=== PATIENT | male | born 1935 | race Caucasian/White ===

== ENCOUNTER 2024-05-24 08:34 | Day surgery (SDC) | payer OTHER, SELFPAY ==
[2024-05-24 09:05] VITALS: BP 119/76
[2024-05-24 09:11] VITALS: BP 119/76
[2024-05-24 09:15] VITALS: BMI 24.1
[2024-05-24] MEDS: LOW STRENGTH ASPIRIN 81 MG PO (09:27)
--- NOTE | 2024-05-24 10:10 | CONSULT.STRU ---
Consultation
-
Date/Time Consultation Requested: 05/24/2024
Date/Time Consultation Performed: 05/24/2024
Requesting Provider: Paco Sandoval MD
Performing Provider: ORLANDO Gómez
Reason for Consultation: /TAVR
Patient History
Physicians
Family Physician: Chris Cain MD
Outpatient Marketing Communications Leader: Sohan Koo DO
Primary Marketing Communications Leader: Sohan Koo DO
History of Present Illness
Mr. Sanchez is a very pleasant 88 yom that presents with severe symptomatic aortic stenosis associated with GONZALES. The heart team first met Mr. Sanchez in Consult with Dr. Marcelino on 05/17/2024 and initiated the conversation regarding and the
evaluation process. Assisted him in scheduling his cardiac catheterization and repeat echocardiogram at [facility]. His echocardiogram from today (05/24/2024) is notable for EF 40-45%, AV P/M 82/47, GILMA 0.9, with trace AI. Discussed
pathophysiology and treatment options of aortic stenosis including SAVR and TAVR with patient and spouse. Explained the TAVR evaluation process comprising of staged CT scan d/t CKD IV, Dental clearance, and a heart team discussion. Mr. Sanchez
has seen Dr. Marcelino in consult on 05/17/2024. TAVR booklet, prescriptions, contact information, and appointments given to patient and his family. Allowed for and answered questions at bedside.
Past Medical History
Past Medical History: HTN, Psychiatric (bipolar depression), Valvular Disease (Aortic stenosis) and Other (CKD IV, Ascending aortic aneurysm (4.9cm), recent hospitalization for pneumonia)
Past Surgical History
Past Surgical History: Abdominal ('GI surgery')
Dental History
[facility]--Form faxed
Family History
Mother: N/A
Father: N/A
Family Medical History: Diabetes
Social History
Alcohol: None
Drug: None
Tobacco: Non-Smoker
Personal:
Living: With Spouse
Employment: Retired
Allergies
Allergy/AdvReac Type Severity Reaction Status Date / Time
No Known Allergies Allergy Unverified 05/24/24 09:18
Home Medications
�Medication �Instructions �Recorded �Confirmed �Type
aspirin 81 mg tablet 81 mg PO DAILY blood thinner 05/24/24 05/24/24 History
atorvastatin 10 mg tablet 10 mg PO DAILY cholesterol 05/24/24 05/24/24 History
azithromycin 250 mg capsule 250 mg PO DAILY pneumonia 05/24/24 05/24/24 History
bupropion HCl 150 mg 24 hr tablet, 150 mg PO DAILY depression 05/24/24 05/24/24 History
extended release
calcitriol 0.25 mcg capsule 0.25 mcg PO DAILY Supplement 05/24/24 05/24/24 History
cefuroxime axetil 250 mg tablet 250 mg PO DAILY @ 0600 pueminia 05/24/24 05/24/24 History
lithium carbonate 300 mg 150 mg PO DAILY depression 05/24/24 05/24/24 History
tablet,extended release
olanzapine 2.5 mg tablet 2.5 mg PO DAILY 05/24/24 05/24/24 History
pantoprazole 40 mg tablet,delayed 40 mg PO DAILY stomach 05/24/24 05/24/24 History
release
Review of Systems
-
History Source: Family (Spouse)
General: Reports Fatigue
Respiratory: Reports SOB and GONZALES
Cardiac: Reports No Symptoms
Abdomen/GI: Reports No Symptoms
: Reports No Symptoms
Neurological: Reports No Symptoms
Vascular: Reports No Symptoms
Physical Exam
Vital Signs
Temp 97.1 F 05/24/24 09:05
Temp route: Oral 05/24/24 09:05
Pulse 80 05/24/24 09:05
Resp Rate 20 05/24/24 09:05
Blood pressure 119/76 05/24/24 09:05
Blood pressure extremity used: Right upper arm 05/24/24 09:05
Position: Sitting 05/24/24 09:05
SaO2 99 05/24/24 09:05
Oxygen Mode of Delivery Room air 05/24/24 09:05
Actual Weight 61.6 kg 05/24/24 09:15
Body Mass Index (BMI) 24.1 05/24/24 09:15
Labs
05/17/2024:
HH: 11.5/35.2
PLt: 153K
BUN/Creatinine: 43/2.96
GFR 20
Diagnostic Studies
ECHOCARDIOGRAM 05/24/2024:
CONCLUSIONS
Mildly reduced left ventricular systolic function. Left ventricular ejection
fraction is 40-45% by volumetric assessment.
Inferior, inferolateral and apical hypokinesis.
Stage II diastolic dysfunction suggestive of abnormal relaxation and increased
filling pressures.
Severe aortic stenosis. Trace aortic regurgitation.
Dilated ascending aorta measuring 4.5 cm.
No prior study available for comparison.
Aortic Valve
Thickened aortic valve with restricted leaflet motion. Severe aortic stenosis.
Peak/mean gradients across the aortic valve are 82/47 mmHg respectively. Using
an LVOT diameter of 2.1 cm., the aortic valve by the Continuity equation is
calculated at 0.9 cm2. Trace aortic regurgitation.
CARDIAC CATHETERIZATION 05/24/2024:
CONCLUSIONS
1. Non-obstructive coronary artery disease in a likely left or co-dominant system. Unable to selectively engage RCA with multiple catheters and in setting of severe CKD with clear RCA for TAVR with planned CT Chest angiogram.
2. Large caliber bilateral iliofemoral system acceptable for TAVR with any sized device
RECOMMENDATIONS:
1. Expectant management after cardiac catheterization via right femoral approach
2. Labs end of week to monitor renal function
3. TAVR CT in 2 weeks to allow renal recovery and then urgent TAVR given critical stenosis
STS Risk ISO AVR:
Operative Mortality8.8%
Morbidity & Bgcngkouo58%
Stroke1.76%
Renal Tywepsw66.9%
Reoperation6.6%
Prolonged Iguiilyizco41.6%
Deep Sternal Wound Infection0.037%
Long Hospital Stay (>14 days)14.3%
Short Hospital Stay (<6 days)*16%
Exam
General: Well Developed and Well Nourished
HEENT: Normocephalic
Neck: Trachea Midline
Respiratory: Clear (anteriorly)
Cardiac: Murmur (III/ AVEL)
GI: Non Tender and Non Distended
Rectal: Deferred by Provider
Neuro: Awake, Alert and Oriented
Extremities: Lower Level Edema (trace)
Psych: Calm
Assessment / Plan
-
Aortic Stenosis
Continue with TAVR evaluation
Trend creatinine after contrast administration (Rx given)
Staged CT scan d/t CKD4 (chest CT 06/07)
CT surgical consult (TT 05/17)
Frailty testing and KCCQ12 completed at consult
Dental clearance-patient is edentulous
Will need to start aspirin
Heart team discussion
Data Reviewed
-
Echo: Report Reviewed by me and Discussed with Physician
CT Scan: Report Reviewed by me and Discussed with Physician
Labs: Labs Reviewed by me
Old Records: Reviewed (old records)
Total Time Spent with Patient (in minutes): 45
[2024-05-24 11:50] VITALS: BP 93/63
[2024-05-24 12:01] VITALS: BP 110/69
--- NOTE | 2024-05-24 16:07 | ITS.CL.PN ---
Die Cut Operator - Procedure Note
Procedure
Procedure Note:
CARDIAC CATHETERIZATION REPORT
Date of Procedure: 05/24/2024
Referring: Dr. Sohan Koo MD
INDICATION: severe aortic stenosis
PROCEDURE:
1. Coronary angiography
2. Abdominal aortogram with bilateral iliofemoral angiography
ACCESS:
6 Danish right common femoral artery (right radial wire would not pass elbow, likely radial loop; manual hemostasis for femoral given pending TAVR)
CATHETERS:
1. 5F JL5
2. 5F JR4
3. 5F AR2
4. 5F AL1
CORONARY ANGIOGRAPHY:
LM: normal, large
LAD: large vessel giving rise to a large D1 with mild proximal stenosis and several more small caliber diagonal branches before wrapping around the apex. Otherwise, mild luminal irregularities.
LCx: large, likely co-dominant vessel giving rise to a large branching OM1 and moderate caliber LPDA. There are mild luminal irregularities.
RCA: not selectively engaged with multiple catheters (JR4, AR2, AL1). Likely a small non- or co-dominant vessel so will plan to clear with CT Chest TAVR to minimize contrast in this patient with severe CKD.
ABDOMINAL AORTOGRAM with ILIOFEMORAL ANGIOGRAPHY: normal caliber iliofemoral system with minimal disease bilaterally and low femoral bifurcations bilaterally.
RADIATION:
Radiation (mGy): 252
DAP (cm2.Gy): 20
Fluoroscopy time (minutes): 13
CONCLUSIONS
1. Non-obstructive coronary artery disease in a likely left or co-dominant system. Unable to selectively engage RCA with multiple catheters and in setting of severe CKD with clear RCA for TAVR with planned CT Chest angiogram.
2. Large caliber bilateral iliofemoral system acceptable for TAVR with any sized device
RECOMMENDATIONS:
1. Expectant management after cardiac catheterization via right femoral approach
2. Labs end of week to monitor renal function
3. TAVR CT in 2 weeks to allow renal recovery and then urgent TAVR given critical stenosis
Copy to: Dr. Sohan Koo MD (primary brownfield program coordinator); Dr. Chris Cain MD (PCP)
Signed: Paco Sandoval MD, PhD
== END 2024-05-24 14:34 | disposition home or self-care (01) ==
LOC: CATH 08:34
PROVIDERS: ATTENDING PHYSICIAN Student in an Organized Health Care Education/Training Program; FAMILY PHYSICIAN Internal Medicine; OTHER PHYSICIAN Internal Medicine Cardiovascular Disease; OTHER PHYSICIAN Student in an Organized Health Care Education/Training Program
DX: I25.10 Atherosclerotic heart disease of native coronary artery without angina pectoris (principal); I35.0 Nonrheumatic aortic (valve) stenosis; N18.4 Chronic kidney disease, stage 4 (severe); F31.9 Bipolar disorder, unspecified; Z79.82 Long term (current) use of aspirin; Z79.899 Other long term (current) drug therapy; Z83.3 Family history of diabetes mellitus; I71.21 Aneurysm of the ascending aorta, without rupture; R06.09 Other forms of dyspnea
CPT/HCPCS: 93306; G0278; 93458; C1894; Q9967

== ENCOUNTER → 2024-06-07 08:22 | Outpatient (REF) | payer OTHER, SELFPAY | LOC: RAD 08:22 | PROVIDERS: ATTENDING PHYSICIAN Nurse Practitioner Acute Care | DX: I35.0 Nonrheumatic aortic (valve) stenosis (principal) | CPT/HCPCS: 75572; 96360; 96361; Q9967 ==

== ENCOUNTER 2024-07-05 07:18 | Inpatient (IN) | payer OTHER, SELFPAY ==
--- NOTE | 2024-06-26 09:28 | HPS.HSE ---
Family Physician
-
Family Physician: Chris Cain
Chief Complaint
-
GONZALES
Pre-TAVR evaluation
History of Present Illness
Mr. Sanchez is a very pleasant 88 yom that presents with severe symptomatic aortic stenosis associated with GONZALES. The heart team first met Mr. Sanchez in Consult with Dr. Marcelino on 05/17/2024 and initiated the conversation regarding and the
evaluation process. Assisted him in scheduling his cardiac catheterization and repeat echocardiogram at [facility]. His echocardiogram from today (05/24/2024) is notable for EF 40-45%, AV P/M 82/47, GILMA 0.9, with trace AI. Discussed
pathophysiology and treatment options of aortic stenosis including SAVR and TAVR with patient and spouse. Explained the TAVR evaluation process comprising of staged CT scan d/t CKD IV, Dental clearance, and a heart team discussion. Mr. Sanchez
has seen Dr. Marcelino in consult on 05/17/2024. TAVR booklet, prescriptions, contact information, and appointments given to patient and his family.
Mr. Sanchez has been reviewed with the heart team and recommended for a TF TAVR utilizing a 26mm S3. Reviewed medication list with patient and spouse, will start 81 mg aspirin daily. He will arrive to the [facility] atrium at 0530. Discussed the risks
of the procedure including stroke, kidney injury and dialysis, vascular injury and ppm. Informed patient and spouse, they will receive a phone call from the heart team on Tuesday (07/04) to confirm time and location of arrival. Allowed for and
answered questions.
Medical History
Past Medical History
Past Medical History: Reports HTN, Valvular Disease (aortic stenosis), Psychiatric (bipolar depression) and Other (ascending aortic aneurysm, CKD stage IV)
Past Surgical History: Reports Other (GI surgery)
Social History
Tobacco: Non-smoker
Alcohol: None
Drug: None
Personal:
Living: With Family
Family History
Family History: Diabetes and Other (alzheimer's dementia)
Allergies / Home Medications
Allergies reflects when Allergies were last updated in [employer].
Home Medications with original date entered in [employer]
Atorvastatin Calcium 10 MG Tablet Oral
Benzonatate 100 MG Capsule 1 capsule as needed Orally Three times a day
buPROPion HCl ER (XL) 150 MG Tablet Extended Release 24 Hour 1 tablet in the morning Orally Once a day
Calcitriol 0.25 MCG Capsule 1 capsule Orally Three times a Week
[address] Carbonate 300 MG Tablet 1 tablet at bedtime Orally Once a day
OLANZapine 2.5 MG Tablet Oral
Omeprazole 20 MG Capsule Delayed Release 1 capsule 1/2 to 1 hour before morning meal Orally Once a day
Aspirin 81 mg daily
Allergy/Medication List:
NKDA
Review of Systems
-
History Source: Patient and Family
Constitutional: Reports Fatigue
EENT: Reports No Symptoms
Respiratory: Reports Cough and Trouble Breathing
Cardiac: Reports No Symptoms
Abdomen/GI: Reports No Symptoms
: Reports No Symptoms
Musculoskeletal: Reports No Symptoms
Skin: Reports No Symptoms
Neurological: Reports No Symptoms
Endocrine: Reports No Symptoms
Hematologic/Lymphatic: Reports No Symptoms
Psych: Reports No Symptoms
Physical Exam
Physical Exam
General: Well Developed, Well Nourished, No Apparent Distress and Comfortable
HEENT: NormoCephalic
Respiratory: Clear
Cardiac: Regular Rhythm and Murmur (III/ AVEL)
Breast: Deferred by me
GI: Soft and Non Tender
Rectal: Deferred by Provider
Genito-urinary: Deferred by me
Musculoskeletal: Edema, Left Lower Extremity (trance) and Edema, Right Lower Extremity (Trace)
Skin: Warm and Dry
Neuro: Awake, Alert, Oriented and AO x 3
Psych: Calm
Data Reviewed
-
CT Scan: Report Reviewed by me and Discussed with Physician (Reviewed TAVR CT scan with the heart team)
Medical Tests (Nuc Med, Echo, EKG etc): Report Reviewed by me and Discussed with Physician (Reviewed echocardiogram and cardiac catheterization with the heart team)
Lab Data: Labs Reviewed by me
Old Records: Reviewed (Dr. Marcelino's office visit)
Impression/Plan
-
IMPRESSION/PLAN:
Severe aortic stenosis
Plan for (R) TF TAVR utilizing a 26mm S3
Continue 81 mg aspirin daily
POD #1/#30 Echocardiogram
Cardiac rehab consult
CKD Stage 4
Caution with contrast
T/c nephrology consult
IV hydration pre and post contrast
Labs
-
Labs:
WBC 8.5 10^3/uL (4.8-10.8) 06/26/24 12:19
RBC 4.12 10^6/uL (4.70-6.10) L 06/26/24 12:19
Hgb 13.2 g/dL (13.0-18.0) 06/26/24 12:19
Hct 40.6 % (39.0-52.0) 06/26/24 12:19
Plt Count 172 10^3/uL (130-400) 06/26/24 12:19
Sodium 140 mmol/L (135-145) 06/26/24 12:19
Potassium 5.0 mmol/L (3.5-5.1) 06/26/24 12:19
Chloride 106 mmol/L (98-107) 06/26/24 12:19
Carbon Dioxide 26 mmol/L (22-30) 06/26/24 12:19
BUN 38 mg/dl (9-20) H 06/26/24 12:19
Creatinine 2.9 mg/dL (0.7-1.3) H 06/26/24 12:19
eGFR 20.43 06/26/24 12:19
Glucose 81 mg/dl (70-99) 06/26/24 12:19
Calcium 10.5 mg/dl (8.4-10.2) H 06/26/24 12:19
Dxm-Y-Avhxdfwmgun Pept 43559 pg/ml 06/26/24 12:19
Albumin 4.3 g/dl (3.5-5.0) 06/26/24 12:19
[2024-06-26 12:02] VITALS: BMI 25.1
[2024-06-26 13:13] LABS: INR 1.02; PT 13.7 Sec (11.4-14.6)
[2024-06-26 13:14] LABS: APTT 34.6 Sec (23.4-35.0)
[2024-06-26 13:15] LABS: Urine Albumin Negative (Neg - Trace); Urine Bilirubin Negative (Negative); Urine Character Clear (Clear); Urine Color Yellow; Urine Glucose Negative (Negative); Urine Ketone Negative (Negative); Urine Leukocyte Negative (Negative); Urine Nitrite Negative (Negative); Urine Occult Blood Negative (Negative); Urine Specific Gravity 1.005 (<1.030); Urine Urobilinogen Negative (Neg - 1+); Urine pH 6.5 (5.0-9.0)
[2024-06-26 13:20] LABS: % Basophils 0.5 % (0-2); % Eosinophils 4.3 % (0-6); % Immature Granulocytes 0.2 % (0-0.5); % Lymphocytes 21.1 % (20.5-51.1); % Monocytes 6.8 % (1.7-9.3); % Neutrophils 67.1 % (42.2-75.2); Absolute Eosinophils 0.4 10^3/uL (0-0.7); Absolute Lymphocytes 1.8 10^3/uL (1.2-3.4); Absolute Monocytes 0.6 10^3/uL (0.1-0.6); Absolute Neutrophils 5.7 10^3/uL (1.4-6.5); Hematocrit 40.6 % (39.0-52.0); Hemoglobin 13.2 g/dL (13.0-18.0); Mean Corp Hgb Conc. 32.5 g/dL (33.0-37.0); Mean Corpuscular Volume 98.5 fL (80.0-94.0); Mean Platelet Volume 13.2 fL (7.4-10.4); Nucleated Red Blood Cells % 0 % (-); Platelet Count 172 10^3/uL (130-400); Red Blood Cell Count 4.12 10^6/uL (4.70-6.10); Red Cell Dist. Width 13.4 % (11.5-14.5); White Blood Cell Count 8.5 10^3/uL (4.8-10.8)
[2024-06-26 13:26] LABS: NT-proBNP 11100 pg/ml
[2024-06-26 13:48] LABS: ALT (SGPT) 14 U/L (0-50); AST (SGOT) 26 U/L (17-59); Albumin 4.3 g/dl (3.5-5.0); Alkaline Phosphatase 68 U/L (38-126); Blood Urea Nitrogen 38 mg/dl (9-20); Calcium 10.5 mg/dl (8.4-10.2); Carbon Dioxide 26 mmol/L (22-30); Chloride 106 mmol/L (98-107); Estimated Creatinine Clearance 15 ml/min; Glucose 81 mg/dl (70-99); Sodium 140 mmol/L (135-145); Total Protein 6.8 g/dl (6.3-8.2); eGFR 20.43
[2024-06-26 13:57] LABS: Direct Bilirubin 0.1 mg/dl (0.0-0.4); Total Bilirubin 0.8 mg/dl (0.2-1.3)
--- NOTE | 2024-06-26 14:48 | CM ---
Met with and Mrs. Sanchez and daughter in [facility]. He states prior to admission he resides with his spouse in a spilt level home without any steps to enter. He states he has three steps to get to the first level and seven steps to get to the
bedroom/full bathroom. He states prior to admission he was independent with ambulation and adls. He states he has a walker at home but does not use it. He states he has a prescription plan. His spouse states she will be home to assist in his
care if needed, The discharge plan is to return home with his spouse and a home visit by the Transitional Care Nurse when medically stable.
We reviewed pre-op and post-op routines. We reviewed the shower instructions. He has the soap, written instructions and the TAVR Educational Booklet. We also reviewed the restrictions including driving and lifting. We discussed a home visit by
the Transitional Care Nurse. He is agreeable to a home visit. The plan is for TAVR on 07/05/24.
[2024-07-05 07:35] VITALS: BMI 24.6
--- NOTE | 2024-07-05 08:36 | W.CVOR.SURPR ---
CVOR Surgeon Immed Pre Op
-
I have examined this patient prior to performance of the scheduled procedure.
The patient's condition is unchanged from the time of the dictated/written History and
Physical and the patient is able to undergo the scheduled procedure.
TF TAVR
Rescue Status: Ok for CPR/Shocks, no to CPB and Sternotomy
[2024-07-05 10:28] LABS: ACT-LR - POC 292 Seconds (116-155)
[2024-07-05 10:51] LABS: ACT-LR - POC 316 Seconds (116-155)
--- NOTE | 2024-07-05 11:48 | W.PN.CT.SURG ---
CT Surgery Operative Note
-
OPERATIVE REPORT
Preoperative Diagnosis: Severe aortic valve stenosis, symptomatic
Postoperative Diagnosis: Same
Procedure(s) Performed: Right trans femoral TAVR with a 26 mm, nominal, Cassidy TAVR valve, Emergency CPR, Pericardiocentesis
Date of Procedure: 07/05/2024
Comorbidities:
1. Severe aortic stenosis, symptomatic
2. Acute on chronic congestive heart failure secondary to volume overload
3. Mitral valve insufficiency
4. Hypertension
5. Hyperlipidemia
6. CAD nonobstructive
7. Bicuspid aortic valve, type 0
8. Ascending aortic aneurysm greater than 5 cm
Cardiac Surgeon: Carlton Marcelino MD, MS
Continuous Process Rotary Drum Tanner: Stephen Moreno MD
Anesthesia: Conscious Sedation and Local Analgesia
EBL: 1000cc
Products: none
Implant: 26 mm, nominal Cassidy KAYLAN TAVR valve, SN: [id number]
Indication(s) for Procedures: 88-year-old male with symptomatic severe aortic stenosis. He was initially referred for consideration of multivalve surgery with the send aortic replacement, however he was extremely frail and acute heart failure and a
poor surgical candidate. Multidisciplinary team discussion with the overall consensus that he was better served with transcatheter intervention. CT-TAVR protocol revealed acceptable anatomy for TAVR access and implantation.
Start time: 1001hrs
Deployment time: 1053hrs
End time: 1109hrs
Time of : 1107hrs
Findings: Preoperative LVEF was 30%. Upon anesthesia induction he required significant inotropic support as well as vasoactive medication support. This was in the form of dobutamine at 5 and Levophed at 10. He also required volume loading. Upon
crossing his aortic valve which was very horizontal in nature, the valve was deployed under rapid pacing as he began to drop his blood pressure. Immediately after deployment of the valve he went into PEA arrest and CPR was initiated. Brief
intraprocedural echocardiogram revealed a significant effusion. A small incision was made just below the xiphoid in order to identify the pericardium needle access was confirmed with wire placement inside the pericardium followed by pigtail
catheter. There was immediate return of approximately 500 cc of blood. We continued CPR with no negative blood pressure. At 1 point he did progress into shockable rhythm which was performed at 200 J followed by immediate CPR. After anesthesia
intubation, a transesophageal echocardiogram was performed which demonstrated significant fluid around his annulus and root which very much resembled a rupture. At this point given his frailty, desires to not have open heart surgeries, and multiple
comorbidities, he was felt by both operators that he was not salvageable. Time of was 11:07 AM.
Access:
1. Device -right common femoral artery, perclose x 2
2. Pigtail -left common femoral artery
3. Transvenous Pacer -left common femoral vein
Description of Procedure: The patient was taken to the hatchery laborer. Their identity and procedure to be performed were verified and they were positioned supine on the hatchery laborer table. Induction via conscious sedation. The patient was then prepped and
draped from chin to thigh in a sterile fashion. A preoperative time-out was performed with all members of the team present. Arterial and venous access was performed using fluoroscopy and ultrasound guidance with micropuncture and Seldinger
technique. Two perclose devices were used on the device side followed by access to the aorta with a stiff wire to facilitate E-sheath placement. Heparin was given. A stiff straight wire after exchanging to multiple different AL catheters and AR
catheters we were able to cross the aortic valve. The stiff wire was exchanged for an extra stiff coiled tip wire. The valve was prepped and mounted on to the device carrier. An ACT of >250 was achieved. We verified x 3 that the valve was mounted in
the correct orientation with the skirt of the valve directed toward the tip of the device carrier. We advanced the device into the descending thoracic aorta where the valve was them mounted onto the balloon under fluoroscopy. The device was flexed
and advanced over the arch into the root and positioned across the aortic valve. As he had extremely horizontal root and a heavily calcified bicuspid aortic valve, 1 cc was injected into the balloon while it was across the valve in order to
facilitate positioning of the device across the aortic valve. Contrast fluoroscopy was used to visualize the prosthesis across the valve and to guide positioning. A pigtail catheter in the RCC as used as a guide. We aimed to have the bottom of the
device marker at the annular hinge point. At this point with the valve in position, his blood pressure had significantly deteriorated. The device sheath was pulled back. We performed a quick pre-deployment time out. The pacer was turned on and had
capture. The valve was deployed with 5 seconds of rapid pacing to nominal volume. The balloon was deflated and the pacer was turned off. We did not have return of vitals and immediate CPR was instituted. The device carrier was unflexed and
positioned back in the descending thoracic aorta. A transthoracic echocardiogram was performed and found significant pericardial effusion. A small incision was made below the xiphoid and to direct needle access into the pericardium. A pigtail
catheter was placed inside the pericardium with return of 500+cc of bright red blood. We continued ACLS protocol for 15 mins, with his rhythm deteriorating from PEA to what looked like VT/Vfib. We shocked him with 200J, which we were able to regain
a regular rhythm with PEA. At this point, he was already intubated and a ARI was passed down demonstrating what looked like an annular rupture. At this point, it was determined by the proceduralist that this was futile and time of was called
at 11:07am.
I, Dr. Carlton Marcelino, was present, scrubbed for, and performed all critical elements of this procedure.
Carlton Marcelino MD
Cardiothoracic Surgeon
[facility]
This operative dictation was created using the [employer] dictation system. Please excuse any grammatical, typographical, or 'sound alike' errors
--- NOTE | 2024-07-05 11:49 | W.PN.DEATH ---
Pronouncement of
-
CPR was paused.
No spontaneous heart tones or respirations noted.
Patient not responsive to verbal stimuli.
Dr. Marcelino pronounced that patient at 1107
Time of : 11:07
Date of : 07/05/24
Cause of : cardiovascular collapse secondary to hemorrhage secondary to aneurysmal rupture s/p TAVR deployment
Family Notified: Yes
--- NOTE | 2024-07-05 11:51 | ITS.CL.TAVR ---
Printing Pressman - TAVR Report
TAVR PRocedure
Procedure Report:
TRANSCATHETER AORTIC VALVE REPLACEMENT REPORT
Date: 07/05/2024
Referring physician: Sohan Koo D.O.
Preop diagnosis: Bicuspid aortic valve with severe aortic valve stenosis and ascending thoracic aortic aneurysm.
Postop diagnosis: Bicuspid aortic valve with severe aortic valve stenosis, ascending thoracic aortic aneurysm, annular rupture.
Procedure: Transcatheter aortic valve replacement (TAVR) using a # 26 Cassidy JAIDA S3 Ultra, emergent pericardiocentesis, ACLS.
Operators: Stephen Moreno DO, Carlton Marcelino M.D.
Findings: Severely calcified and stenotic aortic valve.
Anesthesia: Conscious sedation was provided by the anesthesia staff.
Estimated blood loss: 800 cc.
Complications: Aortic valve annular rupture with immediate pericardial tamponade and cardiac standstill.
Condition: .
Procedure:
The patient was brought to the cardiac slab lifting supervisor after consent and was prepped and draped in standard sterile fashion. Conscious sedation was provided by the anesthesia staff. After a 'Time Out,' bilateral common femoral arteries and the left
common vein were access using a modified Seldinger technique with a micropuncture kit under ultrasound guidance. A 6 Serbian sheath was placed in the left femoral vein. Angiography performed through the micropuncture sheath confirmed satisfactory
arterial placement in the left common femoral artery. The micropuncture sheath was replaced with a 6Fr sheath in the left INFORMATION TECHNOLOGY SECURITY MANAGER. Angiography through the micropuncture kit confirmed satisfactory arterial placement in the right common femoral artery.
The right INFORMATION TECHNOLOGY SECURITY MANAGER was dilated with an 8FR dilator and preclosed with two Perc-Close devices. An 8Fr sheath was placed in the RCFA. A temporary pacing wire was advanced through the left femoral vein and into the right ventricle. The pacemaker
demonstrated good capture and was set to back up. A 5Fr pigtail catheter was advanced through the left femoral sheath and seated in the right coronary cusp. Angiography confirmed co-planar angles.
An AL-1 catheter was advanced through the 8Fr sheath, the J wire was exchanged for an Amplatz Superstiff wire and the catheter and the 8 Fr sheath was removed. The 14 Fr Cassidy E-sheath was inserted over the wire and into the descending aorta.
Heparin 5000 units was given. The JAIDA S3 was prepared on the back table. Orientation was confirmed by both physicians. The AL-1 catheter was re-advanced through the E-sheath to the level of the ascending aorta. The Superstiff wire was removed
and a soft tip straight wire was advanced through the AL-1. Unfortunately, the straight tip wire would not cross the aortic valve using the AL-1 catheter. This was exchanged for several catheters, including an AL 2, AL 3 and JR4. Ultimately, we
were able to cross the aortic valve using an AR mod catheter. Even with this catheter, crossing the valve was difficult, confirming that the aortic valve stenosis was truly critical. The straight wire was removed and an Amplatz Extrastiff wire
with curved proximal end was advanced through the catheter and into the left ventricle. The wire was seated in the apex and the catheter was removed. ACT was checked and confirmed to be > 250 seconds.
The valve was advanced over the Extrastiff wire and into the descending aorta. The balloon was withdrawn and the valve was mounted on the balloon. The valve was advanced over the aortic arch and into the aortic valve annulus. As the balloon
mounted valve approached the aortic valve, the patient's systolic blood pressure and pulsatility essentially dropped to 0. The device was pulled back and pulsatility returned, again confirming the severity and critical nature of the bicuspid aortic
valve stenosis. Recognizing that we would require mcclelland action, the valve was advanced with appropriate torque applied given the thoracic aortic aneurysm and the horizontal nature of the aorta. Even with a more coplanar approach, the valve refused
to cross the aortic valve. 1 cc of contrast was inflated into the valve balloon while it was engaged with the aortic valve. This allowed the valve to cross the aortic valve and into the LVOT. The pusher device was withdrawn to allow for balloon
expansion. Low volume aortography confirmed good position of the valve. At this point, we noticed that the patient's blood pressure was severely depressed with minimal pulsatility with the valve in place. The valve was deployed during rapid
ventricular pacing. The Cassidy balloon was deflated and pulled back into the descending aorta. After the pacing 1, the patient was found to be in pulseless electrical activity. Chest compressions were initiated.
The echo team was in the room and was able to perform a stat bedside transthoracic echo which showed a large pericardial effusion with pericardial tamponade and cardiac standstill. A subxiphoid incision was made by Dr. Marcelino to expose the
pericardium which was then accessed with a large bore needle. A wire was inserted into the pericardium, followed by 6 Serbian sheath, followed by pigtail catheter and pericardiocentesis was performed. The blood in the pericardial drain was alesha
and bright red. Chest compressions continued even after the pericardiocentesis due to persistent pulseless electrical activity. On one rhythm check, the patient was found to be in VF and was defibrillated at 200 J. ACLS protocol was followed in
terms of hemodynamic support. A ARI was performed by the echo team which showed a well-seated, normally functioning TAVR but a large periaortic hematoma and extravasation, consistent with annular rupture. The patient was known to be a nonrescue
(no open surgical procedure) patient. Repeat a rhythm check showed that PEA had deteriorated into asystole. At this time, we determined that further efforts were futile. The patient was declared at 11:09 AM.
Radiation
Dose (mGy): 511.85
DAP (cm2.Gy): 58.3843
Fluoroscopy time (minutes): 28.6
TAVR Echo Gradient (mmHg): Not obtained.
LV (s/x, mmHg): Not obtained.
TAVR Cath Gradient (mmHg): Not obtained.
Conclusions:
1. Successful placement of #26 Jaida S3 Ultra aortic valve via right transfemoral approach.
2. Thoracic aortic aneurysm and aortic valve annular rupture leading to pericardial tamponade and cardiac standstill, unrecoverable.
3. The patient at 11:09 AM.
Stephen Moreno DO, FACC, FACP
Copy to: Sohan Koo D.O., Chris Cain M.D.
--- NOTE | 2024-07-05 11:53 | W.DCSUMMARY ---
Discharge Summary
Discharge Data
Date of Admission: 07/05/24
Date of Discharge: 07/05/24
-
Pending Results: No
Hospital Course
Primary care physician:
Chris Cain
Outpatient battery assembler plastic:
Sohan Koo
Inpatient consultants:
CBC
Procedures:
1. Right trans femoral TAVR with a 26 mm, nominal, Cassidy TAVR valve, Emergency CPR, Pericardiocentesis
Primary Diagnosis:
1. Severe aortic stenosis
Secondary Diagnoses:
1. Ascending aortic aneurysm with a bicuspid valve
2. Hypertension
3. Bipolar/depression
4. Chronic Kidney disease stage iv
5. Post-operative aneurysm rupture
6. Mitral valve insufficiency
7. acute post-operative hemorrhage
HPI: 88 y/o male with hx of severe aortic stenosis presents on 07/05 for a TAVR.
Hospital course: Patient was electively admitted for a TAVR with Dr. Moreno and Dr. Marcelino. Upon appointment patient began to drop his blood pressure and eventually required CPR. Brief intraprocedural echocardiogram revealed a significant
pericardial effusion and Dr. Marcelino was able to identify the pericardium for a pigtail catheter to be placed. There was immediate return of 500 cc of blood and CPR was continued. At 1 point patient did progress to a ventricular tachycardia rhythm
where he was defibrillated with 200 J followed by immediate CPR. After anesthesia and intubation a transesophageal echocardiogram was performed which demonstrated significant fluid around his annulus and root which resembles a rupture. Given that
finding Dr. Marcelino pronounced the patient at 11:07 AM. Patient's family was informed and certificate was filled out.
Home medication changes:
None
Discharge Plan
-
Patient Disposition:
Date/Time
Date/Time: 07/05/24 11:07
Discharge Date and Time
Print Language: KUWAITI
--- NOTE | 2024-07-05 12:30 | PTCARENOTE ---
Family at bedside with pastoral care.
== END 2024-07-05 14:42 | disposition expired | DRG 266 ==
LOC: CVICU 07:18
PROVIDERS: ADMITTING PHYSICIAN Thoracic Surgery (Cardiothoracic Vascular Surgery); FAMILY PHYSICIAN Internal Medicine
PROC: 5A2204Z Restoration of Cardiac Rhythm, Single (ICD-10-PCS; 2024-07-05)
PROC: 0W9D3ZZ Drainage of Pericardial Cavity, Percutaneous Approach (ICD-10-PCS; 2024-07-05)
PROC: B24BZZ4 Ultrasonography of Heart with Aorta, Transesophageal (ICD-10-PCS; 2024-07-05)
PROC: 5A12012 Performance of Cardiac Output, Single, Manual (ICD-10-PCS; 2024-07-05)
PROC: 02RF38Z Replacement of Aortic Valve with Zooplastic Tissue, Percutaneous Approach (ICD-10-PCS; 2024-07-05)
DX: I35.0 Nonrheumatic aortic (valve) stenosis (principal); I71.11 Aneurysm of the ascending aorta, ruptured; F31.30 Bipolar disorder, current episode depressed, mild or moderate severity, unspecified; N18.4 Chronic kidney disease, stage 4 (severe); I31.39 Other pericardial effusion (noninflammatory); I97.618 Postprocedural hemorrhage of a circulatory system organ or structure following other circulatory system procedure; I31.4 Cardiac tamponade; I13.0 Hypertensive heart and chronic kidney disease with heart failure and stage 1 through stage 4 chronic kidney disease, or unspecified chronic kidney disease; I97.190 Other postprocedural cardiac functional disturbances following cardiac surgery; Q23.81 Bicuspid aortic valve; E78.5 Hyperlipidemia, unspecified; I25.10 Atherosclerotic heart disease of native coronary artery without angina pectoris; I50.9 Heart failure, unspecified; R57.0 Cardiogenic shock; I34.0 Nonrheumatic mitral (valve) insufficiency; Y83.2 Surgical operation with anastomosis, bypass or graft as the cause of abnormal reaction of the patient, or of later complication, without mention of misadventure at the time of the procedure; Z79.82 Long term (current) use of aspirin; Z79.899 Other long term (current) drug therapy
CPT/HCPCS: 33016; 33361; 36415; 71046; 76937; 80053; 81003; 82248; 83036; 83880; 85025; 85347; 85610; 85730; 86850; 86900; 86901; 86920; 87070; 92950; 93005; 93312; 93320; 93325; C1760; C1769; C1894; Q9967